=== PATIENT | female | born 1970 | race Caucasian/White ===

== ENCOUNTER 2017-02-17 19:24 | Emergency (ER) | payer OTHER ==
[~2017-02-17 19:24] MED LIST: BACTRIM DS1 TAB PO; BENADRYL ALLERG25 M1 PO; CLINDAMYCIN HC300 MG PO; DILTIAZEM30 M1 PO; ECO81 PO; GLIPIZIDE5 MG PO; HYDROCHLOROTH12.5 M2 PO; IBUPROFEN400 MG PO; LAC PO; LEVAQUIN500 MG PO; LEXAPRO10 MG PO; LIPI20 PO; LISINOPRIL10 MG PO; METFORMIN ER500 M1 PO; NAPROSYN500 MG PO; NEU300 PO
[2017-02-17 21:41] VITALS: BP 142/88
== END 2017-02-17 21:41 | disposition home or self-care (01) ==
LOC: ED 19:24
DX: J20.9 Acute bronchitis, unspecified (principal); B00.1 Herpesviral vesicular dermatitis; E11.40 Type 2 diabetes mellitus with diabetic neuropathy, unspecified; I10 Essential (primary) hypertension; E66.01 Morbid (severe) obesity due to excess calories; F17.210 Nicotine dependence, cigarettes, uncomplicated; Z88.1 Allergy status to other antibiotic agents; Z71.6 Tobacco abuse counseling
CPT/HCPCS: 82962; 99406; J2930; J7613; J7644